=== PATIENT | female | born 1960 | race Caucasian/White ===

== ENCOUNTER 2016-10-01 17:29 | Emergency (ER) | payer OTHER ==
[2016-10-01 19:30] LABS: APPEARANCE CLEAR (CLEAR); COLOR YELLOW (YELLOW)
[2016-10-01 19:31] LABS: BACTERIA FEW /hpf (NONE SEEN); BILIRUBIN NEGATIVE (NEGATIVE); EPITHELIAL CELLS 0-5 /hpf (0-5); GLUCOSE NEGATIVE (NEGATIVE); KETONE MODERATE mg/dL (NEGATIVE); LEUKOCYTE ESTERASE TRACE (NEGATIVE); NITRITE NEGATIVE (NEGATIVE); PROTEIN NEGATIVE (NEGATIVE); RED CELLS - URINE OCC /hpf (0-5); SPECIFIC GRAVITY 1.025 (1.005-1.020); UROBILINOGEN NORMAL (NORMAL); WHITE CELLS - URINE 0-5 /hpf (0-5)
[2016-10-01 19:33] LABS: BASOPHILS 0.3 % (0-2); EOSINOPHILS 2.2 % (0-7); HEMATOCRIT 40.4 % (36.0-48.0); HEMOGLOBIN 13.7 g/dL (12-16); IMMATURE GRANULOCYTES 0.1 % (0-5); LYMPHOCYTES 23.5 % (15-50); MCH 30.1 pg (26.0-34.0); MCHC 33.9 g/dL (31.0-37.0); MCV 88.8 fL (80.0-100.0); MEAN PLATELET VOLUME 10.4 fL (7.4-10.4); MONOCYTES 4.6 % (2-11); NEUTROPHILS 69.3 % (40-80); PLATELET COUNT 212 10x3/uL (130-400); RBC 4.55 10x6/uL (4.00-5.40); RDW 13.1 % (11.5-14.5); WBC 7.8 10x3/uL (4.8-10.8)
[2016-10-01 20:04] LABS: ALBUMIN 3.9 g/dL (3.4-5.0); ALKALINE PHOSPHATASE 57 U/L (46-116); ALT (SGPT) 33 U/L (10-68); CALC OSMOLALITY 283 mosm/kg (275-300); CALCIUM 8.9 mg/dL (8.5-10.1); CARBON DIOXIDE 25.2 mmol/L (21.0-32.0); CHLORIDE - SERUM 105 mmol/L (98-107); CREATININE - SERUM 0.7 mg/dL (0.6-1.3); GLUCOSE 97 mg/dL (74-106); PROTEIN - SERUM 7.3 g/dL (6.4-8.2); SODIUM 142 mmol/L (136-145); UREA NITROGEN 16 mg/dL (7-18); eGFR NON AFRICAN AMERICAN > 90 mL/min (90-120)
[2016-10-01 20:12] LABS: POTASSIUM - SERUM 2.8 mmol/L (3.5-5.1)
== END 2016-10-01 21:10 | disposition home or self-care (01) ==
LOC: D.ER 17:29
PROVIDERS: Emergency Medicine
DX: R11.10 Vomiting, unspecified (principal); R51 Headache

== ENCOUNTER → 2017-01-18 13:25 | Outpatient (CLI) | payer MEDICAID ==
[2017-01-18 14:25] LABS: T4 THYROXINE 8.9 ug/dL (4.7-13.3); THYROID STIMULATING HORMONE 1.51 uIU/mL (0.36-3.74)
== END | disposition home or self-care (01) ==
LOC: D.LAB 13:25
PROVIDERS: Internal Medicine Gastroenterology
DX: R63.4 Abnormal weight loss (principal); K59.00 Constipation, unspecified

== ENCOUNTER 2019-10-04 10:30 | Outpatient (CLI) | payer OTHER | END 2019-10-04 10:35 | disposition home or self-care (01) | LOC: D.MAMMO 10:30 | PROVIDERS: ATTEND Nurse Practitioner Women's Health | DX: N63.11 Unspecified lump in the right breast, upper outer quadrant (principal) ==